=== PATIENT | female | born 1995 | race Caucasian/White ===

== ENCOUNTER 2016-06-29 | Emergency (ER) | payer OTHER | END 2016-06-29 19:22 | disposition home or self-care (01) ==

== ENCOUNTER 2016-06-29 17:06 | Outpatient (CLI) | payer OTHER | END 2016-06-29 18:40 | disposition home or self-care (01) | DX: O26.893 Other specified pregnancy related conditions, third trimester (principal); M54.5 Low back pain; Z3A.31 31 weeks gestation of pregnancy ==

== ENCOUNTER 2016-07-23 18:26 | Outpatient (CLI) | payer OTHER ==
[2016-07-23] MEDS ORDERED: TERBUTALINE 1 MG/ML VIAL SUBQ ONE ×2 (19:38→19:41)
[2016-07-23] MEDS ORDERED: NIFEdipine 10 MG CAPSULE PO ONE ×2 (22:23→23:10)
== END 2016-07-23 23:45 | disposition home or self-care (01) ==
DX: O47.03 False labor before 37 completed weeks of gestation, third trimester (principal); Z3A.34 34 weeks gestation of pregnancy
CPT/HCPCS: 76817; 81001; 96372; 99213; A9270

== ENCOUNTER 2016-08-21 08:00 | Outpatient (CLI) | payer OTHER | END 2016-08-21 23:59 | disposition home or self-care (01) | DX: Z34.83 Encounter for supervision of other normal pregnancy, third trimester (principal) ==

== ENCOUNTER 2016-08-22 04:22 | Inpatient (IN) | payer OTHER ==
[2016-08-22] MEDS ORDERED: SODIUM CHLORIDE FLUSH 0.9% 10 ML SYRINGE IVP ONE (05:08)
[2016-08-22] MEDS ORDERED: SODIUM CHLORIDE FLUSH 0.9% 10 ML SYRINGE IVP PRN (05:27)
[2016-08-22] MEDS: LACTATED RINGERS 1,000 ML IV SCH ×2 (06:46→15:21)
[2016-08-22] MEDS ORDERED: OXYTOCIN/LACTATED RINGERS 250 ML IV ONE ×2 (07:21→08:39)
[2016-08-22] MEDS ORDERED: LIDOCAINE 1% 50 ML MDV ONE (07:23)
[2016-08-22] MEDS ORDERED: ROPIVACAINE 0.2% PF 10 ML VIAL EPI ONE (07:30)
[2016-08-22] MEDS ORDERED: ONDANSETRON 4 MG/2 ML VIAL IVP PRN (07:39)
[2016-08-22] MEDS ORDERED: NALBUPHINE 20 MG/ML AMP IVP PRN (07:39)
[2016-08-22] MEDS ORDERED: diphenhydrAMINE INJ 50 MG/ML VIAL IVP PRN (07:39)
[2016-08-22] MEDS ORDERED: MINERAL OIL LIGHT 10 ML MC ONE (07:57)
[2016-08-22] MEDS ORDERED: miSOPROStol 200 MCG TABLET ONE (08:16)
[2016-08-22] MEDS ORDERED: diphenhydrAMINE 25 MG CAPSULE PO PRN (08:39)
[2016-08-22] MEDS ORDERED: HYDROcod/ACETAM 5/325 MG TABLET PO PRN (08:39)
[2016-08-22] MEDS ORDERED: LACTATED RINGERS 1,000 ML IV SCH (09:00)
[2016-08-22] MEDS: IBUPROFEN 600 MG TABLET PO SCH ×3 (09:57→23:43)
[2016-08-22] MEDS ORDERED: OXYTOCIN/LACTATED RINGERS 250 ML IV SCH (10:00)
[2016-08-22] MEDS: SODIUM CHLORIDE FLUSH 0.9% 10 ML SYRINGE IVP SCH ×2 (10:55→15:10)
[2016-08-22] MEDS: ACETAMINOPHEN 325 MG TABLET PO PRN ×2 (15:19→20:03)
[2016-08-22] MEDS: HYDROCORTISONE/PRAMOXINE 10 GM PR PRN (20:03)
[2016-08-23] MEDS: ACETAMINOPHEN 325 MG TABLET PO PRN (05:18)
[2016-08-23] MEDS: HYDROCORTISONE/PRAMOXINE 10 GM PR PRN (09:16)
[2016-08-23] MEDS: IBUPROFEN 600 MG TABLET PO SCH (09:17)
== END 2016-08-23 13:00 | disposition home or self-care (01) | DRG 775 ==
PROC: 0KQM0ZZ Repair Perineum Muscle, Open Approach (ICD-10-PCS; principal; 2016-08-22)
PROC: 10E0XZZ Delivery of Products of Conception, External Approach (ICD-10-PCS; 2016-08-22)
DX: O99.02 Anemia complicating childbirth (principal); D64.9 Anemia, unspecified; O70.1 Second degree perineal laceration during delivery; Z3A.39 39 weeks gestation of pregnancy; Z37.0 Single live birth

== ENCOUNTER 2017-12-09 09:02 | Emergency (ER) | payer OTHER ==
[2017-12-09 09:20] VITALS: BP 98/85
[2017-12-09] MEDS ORDERED: DEXAMETHASONE 10 MG/ML VIAL PO STA (09:35)
--- NOTE | 2017-12-09 09:37 | ED Physician Documentation ---
PD HPI HEENT - Stated complaint Stated Complaint: THROAT PX - Chief complaint Chief Complaint: Heent - History obtained from History obtained from: Patient - History of Present Illness Timing - onset: How many days ago (2) Timing - duration: Days (2) Timing - details: Gradual onset, Still present Location: Sinuses, Throat Improves: Medication Worsens: Swalllowing Associated symptoms: Congestion, Swollen nodes, Facial swelling. No: Cough Similar symptoms before: Diagnosis (URI) Recently seen: Not recently seen - Additional information Additional information: 22-year-old female mother of 2 small children has developed a sore throat. She states that she has had some sinus congestion and facial swelling as well and that this is been going on for about 2 days. She does have one of her children who was sick with this seems to have improved and another one seems to be coming down with it. She denies any cough, she denies any rash but she has had a low grade fever at home to 101. Review of Systems Constitutional: reports: Fever, Chills Eyes: denies: Decreased vision Ears: denies: Ear pain Nose: reports: Rhinorrhea / runny nose, Congestion, Sinus pressure / pain Throat: reports: Sore throat Cardiac: denies: Chest pain / pressure, Palpitations Respiratory: denies: Dyspnea, Cough GI: denies: Abdominal Pain, Nausea, Vomiting : denies: Dysuria, Frequency PD PAST MEDICAL HISTORY - Past Surgical History Past Surgical History: No - Allergies Allergies/Adverse Reactions: Allergies Allergy/AdvReac Type Severity Reaction Status Date / Time No Known Drug Allergies Allergy Verified 12/09/17 09:20 - Social History Does the pt smoke?: No Smoking Status: Never smoker PD ED PE NORMAL - Vitals Vital signs reviewed: Yes (tachy) - General General: Alert and oriented X 3, No acute distress, Well developed/nourished - HEENT HEENT: Atraumatic, PERRL, EOMI, Ears normal, Other (There is midfacial swelling without maxillary sinus tenderness. There is erythema to the pharynx and [place] to the soft pallet without exudate. 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, No motor deficit, No sensory deficit, Normal speech Eye Opening: Spontaneous Motor: Obeys Commands Verbal: Oriented GCS Score: 15 - Psych Psych: Normal mood, Normal affect Results - Vitals Vitals: Vital Signs - 24 hr 12/09/17 09:18 Temperature 36.7 C Heart Rate 104 H Respiratory 12 Rate Blood Pressure 98/85 H O2 Saturation 98 Oxygen O2 Source Room air - Labs Labs: Laboratory Tests 12/09/17 09:25 Group A Strep Rapid Negative PD MEDICAL DECISION MAKING - ED course Complexity details: reviewed results, re-evaluated patient, considered differential, d/w patient ED course: 22-year-old female with a sore throat and some facial swelling has a negative rapid strep she has no evidence of otitis she does not have exudate she does not have enlarged tonsils. She is administered dexamethasone 10 mg orally and she is diagnosed with viral pharyngitis. - Sepsis Event Vital Signs: Vital Signs - 24 hr 12/09/17 09:18 Temperature 36.7 C Heart Rate 104 H Respiratory 12 Rate Blood Pressure 98/85 H O2 Saturation 98 Oxygen O2 Source Room air Departure - Departure Disposition: 01 Home, Self Care Clinical Impression: Viral pharyngitis Condition: Stable Instructions: ED Pharyngitis Viral Report Pending Follow-Up: MARLO BRANDT [Primary Care Provider] -
== END 2017-12-09 10:04 | disposition home or self-care (01) ==
LOC: ED 09:02
DX: J02.8 Acute pharyngitis due to other specified organisms (principal); B97.89 Other viral agents as the cause of diseases classified elsewhere
CPT/HCPCS: 87070; 87430; 99282